=== PATIENT | male | born 2000 | race Caucasian/White ===

== ENCOUNTER 2022-10-06 14:57 | Emergency (ER) | payer SELFPAY ==
[2022-10-06 15:15] VITALS: BP 128/67; PULSE 82; RESP 18; TEMP 36.7; O2SAT 100
--- NOTE | 2022-10-06 15:15 | ED.GENADULT ---
HPI - General Adult General Chief complaint: Upper Respiratory Infection Stated complaint: sorethroat Time Seen by Provider: 10/06/22 15:15 Source: patient Mode of arrival: ambulatory Limitations: no limitations History of Present Illness HPI narrative: 21-year-old male patient presents to the [facility] with complaints of sore throat that started yesterday. Denies any other symptoms including fever, body aches, chills, abdominal pain, nausea, vomiting or diarrhea. Patient denies taking anything for his symptoms. Patient is from [facility] and will be here until March. Related Data Home Medications Medication Instructions Recorded Confirmed No Home Medications 10/06/22 10/06/22 Allergies Allergy/AdvReac Type Severity Reaction Status Date / Time No Known Allergies Allergy Verified 10/06/22 15:15 Review of Systems Review of Systems: CONSTITUTIONAL: Denies fever, chills, or sweats. EYES: Denies visual changes, redness, or discharge. ENT: Denies rhinorrhea, congestion, Positive sore throat, or otalgia. CARDIOVASCULAR: Denies chest pain, palpitations, or edema. RESPIRATORY: Denies cough or dyspnea. GASTROINTESTINAL: Denies abdominal pain, nausea, vomiting, or diarrhea. GENITOURINARY: Denies dysuria or hematuria. SKIN: Denies rash or itching. MUSCULOSKELETAL: Denies back pain, joint pain, or myalgia. NEUROLOGIC: Denies headache, numbness, or weakness. PSYCHIATRIC: Denies anxiety or depression. PMFSH Comments At the time of my signature I agree with nursing past medical history, surgical, social, and family history. There is no relevant family history pertinent to the presenting complaint. Exam Narrative: GENERAL: Well-appearing, well-nourished, and in no acute distress. HEAD: Normocephalic, atraumatic. EYES: PERRLA and EOMI. ENT: Nares clear, no rhinorrhea or epistaxis. Mucous membranes moist. posterior pharynx with erythema and 1+ tonsillar enlargement noted. No exudates or lesions present. NECK: Supple. No lymphadenopathy CHEST: Clear to auscultation. No respiratory distress. HEART: Regular rate and rhythm. No murmur heard. Normal peripheral pulses. ABDOMEN: Soft, nontender, nondistended, normal active bowel sounds. EXTREMITIES: Normal range of motion. No edema. SKIN: Warm, dry, no rash. NEURO: No focal deficits. Alert and oriented x3. Course Course Level of Care: Express Care Visit Vital Signs Vital signs: Vital Signs Temperature 36.7 C 10/06/22 15:15 Pulse Rate 82 10/06/22 15:15 Respiratory Rate 18 10/06/22 15:15 Blood Pressure 128/67 10/06/22 15:15 Pulse Oximetry 100 10/06/22 15:15 Oxygen Delivery Room Air 10/06/22 15:15 Temperature 36.7 C 10/06/22 15:15 Pulse Rate 82 10/06/22 15:15 Respiratory Rate 18 10/06/22 15:15 Blood Pressure 128/67 10/06/22 15:15 Pulse Oximetry 100 10/06/22 15:15 Oxygen Delivery Room Air 10/06/22 15:15 Vital signs reviewed Medical Decision Making MDM Narrative Medical decision making narrative: Discussed with patient that his rapid strep test is negative. Will send off a culture to lab and if the culture comes back positive we will call him in an antibiotic at that time. Meanwhile he can take [id number] Tylenol, ibuprofen for the pain, warm salt water gargles, hot tea, honey to help soothe his throat. Patient verbalized understanding denies any other questions or concerns at this time. Differential Diagnosis Differential Diagnosis: differential diagnosis: Viral pharyngitis, pharyngitis, group A strep, infectious mononucleosis, gonococcal pharyngitis, exudative pharyngitis, oral candidiasis. Chronic allergies, postnasal drip, GERD, abscess formation, but glottitis, retropharyngeal abscess formation, or airway obstruction. Vital Signs Vital Signs: Vital Signs Temperature 36.7 C 10/06/22 15:15 Pulse Rate 82 10/06/22 15:15 Respiratory Rate 18 10/06/22 15:15 Blood Pressure 128/67 07/0
== END 2022-10-06 15:35 | disposition home or self-care (01) ==
PROVIDERS: Emergency Provider Nurse Practitioner Family
DX: J02.9 Acute pharyngitis, unspecified (principal)
CPT/HCPCS: 87081; 87880; 99203; G0463